=== PATIENT | male | born 1960 | race Caucasian/White ===

== ENCOUNTER → 2019-04-24 | Outpatient (CLI) | payer OTHER ==
[~2019-04-24] MED LIST: IOPAMIDOL 370 MG/ML 200 ML INFUS..BTL INJ ONE; SODIUM CHLORIDE 0.9% 50ML 50 ML ONE
--- NOTE | 2019-04-24 17:19 | Diagnostic Imaging Report ---
EXAM: CT Chest WITH contrast 04/24/2019 4:30 PM INDICATION: Lung nodules COMPARISON: None TECHNIQUE: Chest was scanned utilizing a multidetector helical scanner from the lung apex through the level of the adrenal glands with administration of IV contrast. Coronal and sagittal reformations were obtained. Routine protocol was performed. Dose modulation, iterative reconstruction, and/or weight based adjustment of the mA/kV was utilized to reduce the radiation dose to as low as reasonably achievable. IV CONTRAST: 100 and mL of Isovue-370 RADIATION DOSE: Total DLP: 641.45 mGy*cm Estimated effective dose: (DLP x 0.014 x size factor) mSv COMPLICATIONS: None FINDINGS: LINES/ TUBES: None. LUNGS AND AIRWAYS: There is a 4 mm pleural-based nodule in the lateral right middle lobe (series 3, image 43). There is a 6 mm nodule in the lateral left lower lobe base (image 53) there is also a 5 mm pleural-based nodule in the posterior left lower lobe (image 49). No other pulmonary air space opacity or consolidation. Trachea and main bronchi are clear. PLEURA: The pleural spaces are clear. HEART AND MEDIASTINUM: The thyroid gland is normal. No mediastinal, hilar or axillary lymphadenopathy. The heart is normal in size.. There is no pericardial effusion. No aneurysm of the thoracic aorta. The ascending aorta is ectatic measuring 4.6 cm. Main pulmonary artery measures 3.1 cm, mildly dilated. UPPER ABDOMEN: Included portions of the liver, spleen, pancreas, adrenals and kidneys show no evidence for focal pathology. BONES: No acute or suspicious bony lesions. There is degenerative change at the right shoulder. There are degenerative changes in the thoracic spine with flowing anterior osteophytes suggesting DISH, and several endplate defects compatible with Schmorl's nodes. SOFT TISSUES: Superficial surrounding soft tissue unremarkable. There are morphologically normal-appearing nodes measuring up to 1 cm in the axillary areas, likely reactive. IMPRESSION: 1. Small bilateral pulmonary nodules. The largest measures 6 mm at the left lung base. According to Fleischner Society criteria (2017), recommend follow-up noncontrast chest CT in 6-12 months for a low risk patient and at 6-12 months for a high risk patient. 2. Ectatic ascending thoracic aorta measuring 4.6 cm. 3. Mild dilatation of the main pulmonary artery which may be seen with pulmonary hypertension. Staff: Juanito Signed by: Dr. Dread Solomon M.D. on 04/24/2019 5:16 PM
== END ==
LOC: CT 16:09
PROVIDERS: ATTEND Internal Medicine Critical Care Medicine
DX: R91.8 Other nonspecific abnormal finding of lung field (principal); I77.810 Thoracic aortic ectasia
CPT/HCPCS: 71260; Q9967

== ENCOUNTER → 2020-04-07 | Day surgery (SDC) | payer OTHER ==
[2020-04-02 11:00] LABS: BASOPHILS % 0.5 % (0.0-1.0); EOSINOPHILS # (AUTO) 0.1 (0.0-0.4); EOSINOPHILS % 1.5 % (0.0-6.0); HEMATOCRIT 49.4 % (38.2-49.6); HEMOGLOBIN 16.1 g/dL (14.0-18.0); LYMPHOCYTES % 24.6 % (18.0-39.1); MEAN CORPUSCULAR HEMOGLOBIN 29.9 pg (28-32); MEAN CORPUSCULAR HGB CONC 32.6 g/dL (31-35); MEAN CORPUSCULAR VOLUME 91.8 fL (81-99); MONOCYTES # (AUTO) 0.8 (0.2-0.8); MONOCYTES % 10.1 % (4.4-11.3); NEUTROPHILS # (AUTO) 5.1 (2.1-6.9); NEUTROPHILS % 62.9 % (38.7-80.0); PLATELET COUNT 243 x10e3/uL (140-360); RED BLOOD COUNT 5.38 x10e6/uL (4.3-5.7); RED CELL DISTRIBUTION WIDTH 12.9 % (11.7-14.4)
[2020-04-02 11:13] LABS: INR 0.87; PROTHROMBIN TIME 12.3 seconds (11.9-14.5)
[2020-04-02 11:24] LABS: ALBUMIN 4.4 g/dL (3.5-5.0); ALBUMIN/GLOBULIN RATIO 1.3 (0.8-2.0); ANION GAP 14.6 mmol/L (8-16); CREATININE, SERUM 1.26 mg/dL (0.72-1.25); POTASSIUM 4.6 mmol/L (3.5-5.1)
[2020-04-07] VITALS (7 sets, daily range): BP systolic 122–148; BP diastolic 59–89
[~2020-04-07] VITALS: Ht 203.2 cm; Wt 131.5 kg
[~2020-04-07] MED LIST changes: +ALPRAZOLAM 0.5 MG TAB ONE; +AMLODIPINE BESYL5 MG PO; +DIPHENHYDRAMINE HCL 25 MG CAP ONE; +FENTANYL CITRATE/PF 100MCG/2 ML INJ ONE; +HEPARIN SOD (PORCINE) 1000 UNIT/ML 30ML ONE; +HEPARIN SOD/SOD CHLORIDE 1,000 ML ONE; +LIDOCAINE HCL 2% LOCAL 20 ML VIAL ONE; +MIDAZOLAM HCL 2 MG/2 ML VIAL ONE; +NITROGLYCERIN/D5W 200 MCG/ML 250 ML ONE; +PANTOPRAZOLE SO40 MG PO; +SODIUM CHLORIDE 0.9% 1000ML 1,000 ML ONE; -SODIUM CHLORIDE 0.9% 50ML 50 ML ONE; +VERAPAMIL HCL 2.5 MG/ML 2 ML VIAL ONE; +XYZAL5 MG PO
== END | disposition home or self-care (01) ==
LOC: CATH LAB 09:13
PROVIDERS: ATTEND Internal Medicine Cardiovascular Disease
DX: I25.10 Atherosclerotic heart disease of native coronary artery without angina pectoris (principal); R94.39 Abnormal result of other cardiovascular function study; I10 Essential (primary) hypertension; E78.5 Hyperlipidemia, unspecified; M79.606 Pain in leg, unspecified; Z01.812 Encounter for preprocedural laboratory examination; Z11.59 Encounter for screening for other viral diseases; Z68.32 Body mass index [BMI] 32.0-32.9, adult; Z87.891 Personal history of nicotine dependence; Z82.49 Family history of ischemic heart disease and other diseases of the circulatory system
CPT/HCPCS: 36415; 80053; 85025; 85610; 93454; C1769; J1644; J2001; J2250; J3010; J7030; Q9967; U0002; 99152; 99153